=== PATIENT | male | born 1950 | race Two or more races ===

== ENCOUNTER 2022-12-31 21:13 | Inpatient (IN) | payer MEDICARE, BC ==
[~2022-12-31] VITALS: Ht 167.6 cm; Wt 98.0 kg
[2023-01-01] VITALS (15 sets, daily range): BP systolic 134–158; BP diastolic 47–77; PULSE 63–86; RESP 17–31; TEMP 97.3–98.1; O2SAT 75–95
[2023-01-01] MEDS ORDERED: MORPHINE SULFATE INJ 2 MG/ml SYRG IV PRN ×2 (11:45)
[2023-01-01] MEDS ORDERED: LORazepam 0.5 MG TAB PO PRN (11:45)
[2023-01-01] MEDS ORDERED: HYDROcodone-ACET 5/325MG TAB PO PRN (11:45)
[2023-01-01] MEDS ORDERED: NITROGLYCERIN 0.4 MG SL TAB SL PRN (11:45)
[2023-01-01] MEDS ORDERED: ONDANSETRON HCL 4 MG/2 ML VIAL IV PRN (11:45)
[2023-01-01] MEDS ORDERED: MAALOX PLUS or MAALOX 30 ML PO PRN (11:45)
[2023-01-01] MEDS ORDERED: DOCUSATE SOD 100 MG CAP PO PRN ×2 (11:45→18:45)
[2023-01-01] MEDS ORDERED: EZET10TA22 PO (11:58)
[2023-01-01] MEDS ORDERED: ASPI-463 PO (11:58)
[2023-01-01] MEDS ORDERED: ROSU40TA81 PO (11:58)
[2023-01-01] MEDS ORDERED: [UNRECOGNIZED DRUG - CODE] PO (11:58)
[2023-01-01] MEDS ORDERED: CARV20CA10 PO (11:58)
[2023-01-01] MEDS ORDERED: SITA50TA PO (11:58)
[2023-01-01] MEDS ORDERED: EMPA1TAB3 PO (11:58)
[2023-01-01] MEDS ORDERED: GABA-1250 PO (11:58)
[2023-01-01] MEDS ORDERED: FURO1TAB31 PO (11:58)
[2023-01-01] MEDS ORDERED: OMEG-20 PO (11:58)
[2023-01-01] MEDS ORDERED: POTA-220 PO (11:58)
[2023-01-01] MEDS ORDERED: ASCO1TAB27 PO (11:58)
[2023-01-01] MEDS ORDERED: LOSA100T58 PO (11:58)
[2023-01-01] MEDS ORDERED: PANT40TA2 PO (11:58)
[2023-01-01] MEDS ORDERED: FURO1TAB32 PO (11:58)
[2023-01-01] MEDS ORDERED: FERR325T24 PO (11:58)
[2023-01-01 12:00] LABS: Basophils # (auto) 0.1 10 ^3/uL (0-0.2); Basophils % (auto) 0.9 % (0.0-2.0); Eosinophils # (auto) 0 10 ^3/uL (0-0.8); Eosinophils % (auto) 0.7 % (0.0-7.0); Hematocrit 36.3 % (41.0-53.0); Hemoglobin 11.5 g/dL (13.5-17.5); Lymphocytes # (auto) 0.9 10 ^3/uL (0.4-5.4); Mean Corpuscular Hemoglobin 27.4 pg (28.0-32.0); Mean Corpuscular Hgb Conc. 31.8 g/dL (32.0-36.0); Mean Corpuscular Volume 86.3 fL (80.0-100.0); Monocytes # (auto) 0.9 10 ^3/uL (0-1.3); Monocytes % (auto) 15.5 % (0.0-12.0); Neutrophils # (auto) 4.1 10 ^3/uL (1.6-8.6); Neutrophils % (auto) 67.9 % (37.0-80.0); Nucleated Red Blood Cells % 0.2 %; Red Blood Cells 4.21 10^6/uL (4.5-5.90); Red Cell Distribution Width 17.5 % (11.8-14.3)
[2023-01-01] MEDS ORDERED: PROPOFOL 10 MG/ML 20 ML IV ONE (12:06)
[2023-01-01] MEDS ORDERED: GLYCOPYRROLATE 0.2 MG/ML 1ML VIAL ONE (12:07)
[2023-01-01] MEDS ORDERED: ROCURONIUM 10MG/ML 10ML VIAL IV ONE (12:07)
[2023-01-01] MEDS ORDERED: LIDOCAINE 2% (LOCAL ANESTH.) PF 5ml SDV ONE (12:07)
[2023-01-01] MEDS ORDERED: ONDANSETRON HCL 4 MG/2 ML VIAL ONE (12:07)
[2023-01-01] MEDS ORDERED: DexAMETHasone SOD PHOS 10MG/1ML VIAL INJ ONE (12:07)
[2023-01-01] MEDS ORDERED: KETAMINE HCL 10 ML ONE (12:13)
[2023-01-01 12:21] LABS: INR 1.38 (0.9-1.15); Partial Thromboplastin Time 27.3 SEC (24.5-34.5); Prothrombin Time 14.2 sec (9.3-11.8)
[2023-01-01 12:26] LABS: Albumin 3.3 g/dL (3.4-5.0); Calcium 8.7 mg/dL (8.5-10.1)
[2023-01-01 12:38] LABS: BUN/Creatinine Ratio 42.8 (10.0-20.0); Bilirubin, Total 0.5 mg/dL (0.2-1.0); Total Protein 8.2 g/dL (6.4-8.2)
[2023-01-01] MEDS ORDERED: CIPROFLOXACIN 400MG/200ML 200 ML IV ONE (12:59)
[2023-01-01] MEDS ORDERED: SODIUM CHLORIDE LOCK 10 ML ONE (13:16)
[2023-01-01] MEDS ORDERED: ePHEDrine SULFATE 50 MG/ML AMP ONE (13:23)
[2023-01-01] MEDS ORDERED: FUROSEMIDE 20 MG/2 ML VIAL ONE (13:26)
[2023-01-01] MEDS ORDERED: fentaNYL CITRATE 100 MCG/2 ML VL ONE (13:43)
[2023-01-01] MEDS: SODIUM CHLOR 0.9% PF (SALINE LOCK) 10ML VIAL/SYR IV SCH ×2 (14:00→23:32)
[2023-01-01] MEDS ORDERED: SUGAMMADEX 200mg/2ml Vial (100MG/ML) IV ONE (14:37)
[2023-01-01 16:14] LABS: Base Excess -4.3 mmol/L (-2.0-2.0)
[2023-01-01] MEDS ORDERED: DEXTROSE (50%) 50ML SYRG IV PRN (18:30)
[2023-01-01] MEDS: ACCU-CHEK COMFORT CURVE STRIP VI SCH (22:00)
[2023-01-01] MEDS: GABAPENTIN 300 MG CAP PO SCH (22:00)
[2023-01-01] MEDS: InsuLIN REG 1unit/0.01ml Soln (100units/ml) SC SCH (22:00)
[2023-01-01] MEDS: ACETAMINOPHEN 325 MG TAB PO PRN (23:32)
[2023-01-02] VITALS (31 sets, daily range): BP systolic 75–138; BP diastolic 30–62; PULSE 54–95; RESP 14–32; TEMP 97.5–98; O2SAT 86–100
[2023-01-02] MEDS ORDERED: diphenhdrAMINE HCL 25 MG CAP PO ONE (03:30)
[2023-01-02] MEDS: ACETAMINOPHEN 325 MG TAB PO PRN ×2 (05:04→20:55)
[2023-01-02 05:22] LABS: Basophils # (auto) 0 10 ^3/uL (0-0.2); Basophils % (auto) 0.3 % (0.0-2.0); Eosinophils # (auto) 0 10 ^3/uL (0-0.8); Hematocrit 34.4 % (41.0-53.0); Lymphocytes # (auto) 0.7 10 ^3/uL (0.4-5.4); Lymphocytes % (auto) 12.3 % (10.0-50.0); Mean Corpuscular Hemoglobin 27.7 pg (28.0-32.0); Mean Corpuscular Hgb Conc. 32.1 g/dL (32.0-36.0); Mean Corpuscular Volume 86.1 fL (80.0-100.0); Monocytes # (auto) 0.5 10 ^3/uL (0-1.3); Monocytes % (auto) 9.1 % (0.0-12.0); Neutrophils # (auto) 4.6 10 ^3/uL (1.6-8.6); Neutrophils % (auto) 78.3 % (37.0-80.0); Red Blood Cells 3.99 10^6/uL (4.5-5.90); Red Cell Distribution Width 17.5 % (11.8-14.3); White Blood Cell 5.9 10^3/uL (4.4-10.8)
[2023-01-02 05:38] LABS: Albumin 3.1 g/dL (3.4-5.0); BUN/Creatinine Ratio 45.7 (10.0-20.0); Calcium 8.4 mg/dL (8.5-10.1)
[2023-01-02 05:40] LABS: Bilirubin, Total 0.4 mg/dL (0.2-1.0); Total Protein 7.5 g/dL (6.4-8.2)
[2023-01-02 05:42] LABS: Potassium 5.6 mmol/L (3.5-5.1)
[2023-01-02] MEDS: GABAPENTIN 300 MG CAP PO SCH (05:47)
[2023-01-02] MEDS: SODIUM CHLOR 0.9% PF (SALINE LOCK) 10ML VIAL/SYR IV SCH ×3 (05:48→20:55)
[2023-01-02] MEDS ORDERED: SODIUM ZIRCONIUM CYCL 10 GM PAK PO ONE (06:00)
[2023-01-02] MEDS: InsuLIN REG 1unit/0.01ml Soln (100units/ml) SC SCH ×4 (06:05→20:57)
[2023-01-02] MEDS: ACCU-CHEK COMFORT CURVE STRIP VI SCH ×4 (06:05→20:56)
[2023-01-02] MEDS: PANTOPRAZOLE 40 MG TAB PO SCH (08:51)
[2023-01-02] MEDS: cefTRIAXone 1GM/50ML D5W 50 ML IV SCH (08:54)
[2023-01-02] MEDS ORDERED: FUROSEMIDE 20 MG TAB PO SCH (10:00)
[2023-01-02] MEDS ORDERED: ATORVASTATIN 20 MG TAB PO SCH (10:00)
[2023-01-02] MEDS ORDERED: ASPirin 81 mg TAB PO SCH (10:00)
[2023-01-02] MEDS ORDERED: LOSARTAN POTASSIUM 50 MG TAB PO SCH (10:00)
[2023-01-02] MEDS ORDERED: CARVEDILOL 12.5 MG TAB PO ONE (10:00)
[2023-01-02] MEDS ORDERED: POTASSIUM CHL 20 Meq TABLET PO SCH (10:00)
[2023-01-02] MEDS: SOD CHL 0.45% 1,000 ML IV SCH (14:01)
[2023-01-02] MEDS: FUROSEMIDE 20 MG/2 ML VIAL IV SCH (16:40)
[2023-01-02] MEDS: IPRATROPIUM BROM 0.5 MG/2.5ML INH SOL NEB SCH (19:11)
[2023-01-02] MEDS: ALBUTEROL SULF 2.5 MG/0.5ML(0.5%) NEB SOLN NEB SCH (19:11)
[2023-01-02] MEDS: MELATONIN 5 MG TAB PO SCH (20:53)
[2023-01-02] MEDS: ATORVASTATIN 20 MG TAB PO SCH (20:54)
[2023-01-03] VITALS (34 sets, daily range): BP systolic 95–153; BP diastolic 46–99; PULSE 53–122; RESP 13–32; TEMP 97.6–98; O2SAT 88–97
[2023-01-03] MEDS: ALBUTEROL SULF 2.5 MG/0.5ML(0.5%) NEB SOLN NEB SCH ×4 (00:27→18:35)
[2023-01-03] MEDS: IPRATROPIUM BROM 0.5 MG/2.5ML INH SOL NEB SCH ×4 (00:27→18:35)
[2023-01-03] MEDS: ACETAMINOPHEN 325 MG TAB PO PRN ×4 (02:58→21:58)
[2023-01-03 06:15] LABS: Basophils # (auto) 0 10 ^3/uL (0-0.2); Basophils % (auto) 0.3 % (0.0-2.0); Eosinophils # (auto) 0 10 ^3/uL (0-0.8); Eosinophils % (auto) 0.5 % (0.0-7.0); Hematocrit 31.7 % (41.0-53.0); Hemoglobin 10.2 g/dL (13.5-17.5); Lymphocytes # (auto) 0.7 10 ^3/uL (0.4-5.4); Mean Corpuscular Hemoglobin 27.9 pg (28.0-32.0); Mean Corpuscular Hgb Conc. 32.3 g/dL (32.0-36.0); Mean Corpuscular Volume 86.2 fL (80.0-100.0); Monocytes # (auto) 0.7 10 ^3/uL (0-1.3); Monocytes % (auto) 14.4 % (0.0-12.0); Neutrophils # (auto) 3.2 10 ^3/uL (1.6-8.6); Neutrophils % (auto) 69.8 % (37.0-80.0); Nucleated Red Blood Cells % 0.2 %; Red Blood Cells 3.67 10^6/uL (4.5-5.90); Red Cell Distribution Width 17.6 % (11.8-14.3); White Blood Cell 4.6 10^3/uL (4.4-10.8)
[2023-01-03 06:34] LABS: Potassium 4.3 mmol/L (3.5-5.1)
[2023-01-03 06:42] LABS: BUN/Creatinine Ratio 42.6 (10.0-20.0); Magnesium 2.7 mg/dL (1.6-2.6)
[2023-01-03] MEDS: ACCU-CHEK COMFORT CURVE STRIP VI SCH ×4 (07:00→21:59)
[2023-01-03] MEDS: InsuLIN REG 1unit/0.01ml Soln (100units/ml) SC SCH ×4 (07:00→21:59)
[2023-01-03] MEDS: SODIUM CHLOR 0.9% PF (SALINE LOCK) 10ML VIAL/SYR IV SCH ×3 (07:48→21:58)
[2023-01-03] MEDS: FUROSEMIDE 20 MG/2 ML VIAL IV SCH ×2 (07:48→18:37)
[2023-01-03] MEDS: LEVOTHYROXINE SODIUM 88 MCG TAB PO SCH (07:48)
[2023-01-03] MEDS: cefTRIAXone 1GM/50ML D5W 50 ML IV SCH (09:25)
[2023-01-03] MEDS: SOD CHL 0.45% 1,000 ML IV SCH (09:44)
[2023-01-03] MEDS: PANTOPRAZOLE 40 MG TAB PO SCH (10:10)
[2023-01-03] MEDS ORDERED: FUROSEMIDE 20 MG/2 ML VIAL IV ONE (11:45)
[2023-01-03] MEDS: traMADol HCL 50 MG TAB PO PRN ×2 (12:13→20:28)
[2023-01-03 17:52] LABS: Urine Bacteria NONE SEEN /hpf (None Seen); Urine Blood 3+ /uL (Negative); Urine Clarity Clear (Clear); Urine Color Colorless (Yellow); Urine Mucus FEW (None Seen); Urine Protein, UAD TRACE (Negative); Urine Specific Gravity 1.007 (1.001-1.035); Urine Urobilinogen Normal (Negative); Urine WBC 9 /hpf (0 - 3)
[2023-01-03] MEDS: MELATONIN 5 MG TAB PO SCH (21:58)
[2023-01-03] MEDS: ATORVASTATIN 20 MG TAB PO SCH (21:58)
[2023-01-03] MEDS: GABAPENTIN 300 MG CAP PO SCH (21:59)
[2023-01-04] VITALS (27 sets, daily range): BP systolic 107–161; BP diastolic 39–85; PULSE 62–83; RESP 16–33; TEMP 97–98.6; O2SAT 87–98
[2023-01-04] MEDS: IPRATROPIUM BROM 0.5 MG/2.5ML INH SOL NEB SCH ×4 (00:27→18:41)
[2023-01-04] MEDS: ALBUTEROL SULF 2.5 MG/0.5ML(0.5%) NEB SOLN NEB SCH ×4 (00:27→18:41)
[2023-01-04 05:17] LABS: Calcium 8.3 mg/dL (8.5-10.1); Potassium 4.3 mmol/L (3.5-5.1)
[2023-01-04 05:19] LABS: BUN/Creatinine Ratio 48.1 (10.0-20.0)
[2023-01-04] MEDS: ACETAMINOPHEN 325 MG TAB PO PRN ×2 (05:32→20:38)
[2023-01-04] MEDS: traMADol HCL 50 MG TAB PO PRN ×2 (05:32→20:35)
[2023-01-04] MEDS: ACCU-CHEK COMFORT CURVE STRIP VI SCH ×4 (07:00→21:35)
[2023-01-04] MEDS: InsuLIN REG 1unit/0.01ml Soln (100units/ml) SC SCH ×4 (07:00→21:43)
[2023-01-04] MEDS: LEVOTHYROXINE SODIUM 88 MCG TAB PO SCH (08:08)
[2023-01-04] MEDS: SODIUM CHLOR 0.9% PF (SALINE LOCK) 10ML VIAL/SYR IV SCH ×3 (08:09→21:34)
[2023-01-04] MEDS: cefTRIAXone 1GM/50ML D5W 50 ML IV SCH (09:07)
[2023-01-04] MEDS: PANTOPRAZOLE 40 MG TAB PO SCH (09:08)
[2023-01-04 10:27] LABS: Hepatitis B Surface Antibody Negative (Negative)
[2023-01-04 10:47] LABS: Hepatitis A Total Antibody Negative (Negative)
[2023-01-04] MEDS ORDERED: CYANOCOBALAMIN (B-12) 1000 MCG/1 ML VIAL IM ONE (11:15)
[2023-01-04 12:19] LABS: Hepatitis B Core Total AB Negative (Negative)
[2023-01-04 12:20] LABS: Hepatitis B Surface Antigen Negative (Negative); Hepatitis C Antibody Negative (Negative)
[2023-01-04] MEDS: PIPERACILLIN-TAZOB 3.375GM 100 ML IV SCH ×2 (14:19→21:33)
[2023-01-04] MEDS: FUROSEMIDE 20 MG/2 ML VIAL IV SCH (17:41)
[2023-01-04] MEDS: MELATONIN 5 MG TAB PO SCH (21:34)
[2023-01-04] MEDS: GABAPENTIN 300 MG CAP PO SCH (21:34)
[2023-01-04] MEDS: ATORVASTATIN 20 MG TAB PO SCH (21:44)
[2023-01-05] VITALS (36 sets, daily range): BP systolic 118–167; BP diastolic 48–75; PULSE 66–181; RESP 15–29; TEMP 97.9–98.5; O2SAT 89–100
[2023-01-05] MEDS: ALBUTEROL SULF 2.5 MG/0.5ML(0.5%) NEB SOLN NEB SCH ×4 (00:11→19:20)
[2023-01-05] MEDS: IPRATROPIUM BROM 0.5 MG/2.5ML INH SOL NEB SCH ×4 (00:12→19:20)
[2023-01-05 05:05] LABS: Hemoglobin 10.9 g/dL (13.5-17.5); Mean Corpuscular Hemoglobin 27.6 pg (28.0-32.0); Mean Corpuscular Volume 86.2 fL (80.0-100.0); Red Blood Cells 3.94 10^6/uL (4.5-5.90); Red Cell Distribution Width 17.8 % (11.8-14.3); White Blood Cell 4.3 10^3/uL (4.4-10.8)
[2023-01-05 05:12] LABS: Band Neutrophils % (manual) 0; Basophils % (manual) 0 (0.0-2.0); Blast Cells 0; Eosinophils % (manual) 0 (0-7); Metamyelocytes % 0; Myelocytes % 0; Promyelocytes % 0; Reactive Lymphocytes 0
[2023-01-05 05:16] LABS: BUN/Creatinine Ratio 38.4 (10.0-20.0); Calcium 8.4 mg/dL (8.5-10.1); Potassium 4.2 mmol/L (3.5-5.1)
[2023-01-05] MEDS: LEVOTHYROXINE SODIUM 88 MCG TAB PO SCH (06:00)
[2023-01-05] MEDS: PIPERACILLIN-TAZOB 3.375GM 100 ML IV SCH ×3 (06:00→21:22)
[2023-01-05] MEDS: FUROSEMIDE 20 MG/2 ML VIAL IV SCH ×2 (06:04→17:47)
[2023-01-05] MEDS: traMADol HCL 50 MG TAB PO PRN (06:08)
[2023-01-05] MEDS: ACETAMINOPHEN 325 MG TAB PO PRN (06:12)
[2023-01-05] MEDS: ACCU-CHEK COMFORT CURVE STRIP VI SCH ×4 (06:12→21:25)
[2023-01-05] MEDS: InsuLIN REG 1unit/0.01ml Soln (100units/ml) SC SCH ×4 (06:12→21:25)
[2023-01-05] MEDS: SODIUM CHLOR 0.9% PF (SALINE LOCK) 10ML VIAL/SYR IV SCH ×3 (06:13→21:22)
[2023-01-05 08:17] LABS: PSA Free 0.83 ng/mL; Prostate Specific Antigen 4.2 ng/mL (0.0-4.0)
[2023-01-05] MEDS: PANTOPRAZOLE 40 MG TAB PO SCH (08:53)
[2023-01-05 09:16] LABS: Lymphocytes % (manual) 15 (10.0-50.0); Monocytes % (manual) 11 (0-12); Platelet Estimate Decreased
[2023-01-05] MEDS ORDERED: CYANOCOBALAMIN (B-12) 1000 MCG/1 ML VIAL IM SCH (10:00)
[2023-01-05] MEDS: ATORVASTATIN 20 MG TAB PO SCH (21:20)
[2023-01-05] MEDS: MELATONIN 5 MG TAB PO SCH (21:21)
[2023-01-05] MEDS: GABAPENTIN 300 MG CAP PO SCH (21:21)
[2023-01-06] VITALS (31 sets, daily range): BP systolic 123–166; BP diastolic 35–66; PULSE 74–93; RESP 17–32; TEMP 97.4–98; O2SAT 87–99
[2023-01-06] MEDS: ALBUTEROL SULF 2.5 MG/0.5ML(0.5%) NEB SOLN NEB SCH ×4 (00:01→18:51)
[2023-01-06] MEDS: IPRATROPIUM BROM 0.5 MG/2.5ML INH SOL NEB SCH ×4 (00:01→18:52)
[2023-01-06 05:13] LABS: Calcium 8.5 mg/dL (8.5-10.1); Magnesium 2.3 mg/dL (1.6-2.6)
[2023-01-06 05:16] LABS: BUN/Creatinine Ratio 33.3 (10.0-20.0)
[2023-01-06 05:32] LABS: Basophils # (auto) 0 10 ^3/uL (0-0.2); Basophils % (auto) 0.5 % (0.0-2.0); Eosinophils # (auto) 0 10 ^3/uL (0-0.8); Eosinophils % (auto) 0.3 % (0.0-7.0); Hematocrit 33.9 % (41.0-53.0); Hemoglobin 10.9 g/dL (13.5-17.5); Lymphocytes # (auto) 0.7 10 ^3/uL (0.4-5.4); Lymphocytes % (auto) 14.8 % (10.0-50.0); Mean Corpuscular Hemoglobin 27.7 pg (28.0-32.0); Mean Corpuscular Hgb Conc. 32.3 g/dL (32.0-36.0); Mean Corpuscular Volume 85.7 fL (80.0-100.0); Monocytes # (auto) 0.9 10 ^3/uL (0-1.3); Monocytes % (auto) 17.4 % (0.0-12.0); Neutrophils # (auto) 3.4 10 ^3/uL (1.6-8.6); Nucleated Red Blood Cells % 0.1 %; Red Blood Cells 3.95 10^6/uL (4.5-5.90); Red Cell Distribution Width 17.6 % (11.8-14.3)
[2023-01-06] MEDS: FUROSEMIDE 20 MG/2 ML VIAL IV SCH (06:18)
[2023-01-06] MEDS: SODIUM CHLOR 0.9% PF (SALINE LOCK) 10ML VIAL/SYR IV SCH ×3 (06:19→22:26)
[2023-01-06] MEDS: PIPERACILLIN-TAZOB 3.375GM 100 ML IV SCH ×3 (06:23→22:25)
[2023-01-06] MEDS: LEVOTHYROXINE SODIUM 88 MCG TAB PO SCH (06:23)
[2023-01-06] MEDS: InsuLIN REG 1unit/0.01ml Soln (100units/ml) SC SCH ×4 (06:24→22:00)
[2023-01-06] MEDS: ACCU-CHEK COMFORT CURVE STRIP VI SCH ×4 (06:24→22:26)
[2023-01-06 06:54] LABS: INR 1.42 (0.9-1.15); Partial Thromboplastin Time 26.7 SEC (24.5-34.5); Prothrombin Time 14.6 sec (9.3-11.8)
[2023-01-06] MEDS: PANTOPRAZOLE 40 MG TAB PO SCH (08:07)
[2023-01-06] MEDS: GABAPENTIN 300 MG CAP PO SCH (22:25)
[2023-01-06] MEDS: ATORVASTATIN 20 MG TAB PO SCH (22:25)
[2023-01-06] MEDS: MELATONIN 5 MG TAB PO SCH (22:26)
[2023-01-07] VITALS (21 sets, daily range): BP systolic 115–158; BP diastolic 47–70; PULSE 66–87; RESP 17–30; TEMP 97.4–97.9; O2SAT 90–98
[2023-01-07] MEDS: traMADol HCL 50 MG TAB PO PRN (02:23)
[2023-01-07 04:56] LABS: Basophils # (auto) 0 10 ^3/uL (0-0.2); Basophils % (auto) 0.7 % (0.0-2.0); Eosinophils # (auto) 0 10 ^3/uL (0-0.8); Eosinophils % (auto) 0.3 % (0.0-7.0); Hematocrit 33.3 % (41.0-53.0); Hemoglobin 10.7 g/dL (13.5-17.5); Lymphocytes # (auto) 0.8 10 ^3/uL (0.4-5.4); Lymphocytes % (auto) 14.1 % (10.0-50.0); Mean Corpuscular Hemoglobin 27.7 pg (28.0-32.0); Mean Corpuscular Hgb Conc. 32.3 g/dL (32.0-36.0); Mean Corpuscular Volume 85.9 fL (80.0-100.0); Monocytes % (auto) 17.5 % (0.0-12.0); Neutrophils # (auto) 3.7 10 ^3/uL (1.6-8.6); Neutrophils % (auto) 67.4 % (37.0-80.0); Red Blood Cells 3.87 10^6/uL (4.5-5.90); Red Cell Distribution Width 17.2 % (11.8-14.3); White Blood Cell 5.6 10^3/uL (4.4-10.8)
[2023-01-07] MEDS: PIPERACILLIN-TAZOB 3.375GM 100 ML IV SCH ×3 (05:09→21:20)
[2023-01-07] MEDS: FUROSEMIDE 20 MG/2 ML VIAL IV SCH ×3 (05:09→17:23)
[2023-01-07] MEDS: SODIUM CHLOR 0.9% PF (SALINE LOCK) 10ML VIAL/SYR IV SCH ×3 (05:10→21:20)
[2023-01-07 05:19] LABS: Calcium 8.4 mg/dL (8.5-10.1); Potassium 3.7 mmol/L (3.5-5.1)
[2023-01-07 05:22] LABS: BUN/Creatinine Ratio 27.4 (10.0-20.0)
[2023-01-07] MEDS: LEVOTHYROXINE SODIUM 88 MCG TAB PO SCH (05:58)
[2023-01-07] MEDS: InsuLIN REG 1unit/0.01ml Soln (100units/ml) SC SCH ×4 (05:58→21:24)
[2023-01-07] MEDS: ACCU-CHEK COMFORT CURVE STRIP VI SCH ×4 (05:58→21:20)
[2023-01-07] MEDS: IPRATROPIUM BROM 0.5 MG/2.5ML INH SOL NEB SCH ×4 (06:57→21:20)
[2023-01-07] MEDS: ALBUTEROL SULF 2.5 MG/0.5ML(0.5%) NEB SOLN NEB SCH ×4 (06:57→21:19)
[2023-01-07] MEDS: PANTOPRAZOLE 40 MG TAB PO SCH ×3 (08:24→18:55)
[2023-01-07] MEDS: MELATONIN 5 MG TAB PO SCH (21:20)
[2023-01-07] MEDS: ATORVASTATIN 20 MG TAB PO SCH (21:20)
[2023-01-07] MEDS: GABAPENTIN 300 MG CAP PO SCH (21:20)
[2023-01-08] VITALS (29 sets, daily range): BP systolic 130–149; BP diastolic 46–60; PULSE 74–121; RESP 11–40; TEMP 97.5–98.6; O2SAT 86–99
[2023-01-08 05:20] LABS: Hematocrit 33.5 % (41.0-53.0); Hemoglobin 10.9 g/dL (13.5-17.5); Mean Corpuscular Hemoglobin 27.9 pg (28.0-32.0); Mean Corpuscular Hgb Conc. 32.5 g/dL (32.0-36.0); Mean Corpuscular Volume 85.7 fL (80.0-100.0); Red Blood Cells 3.91 10^6/uL (4.5-5.90); Red Cell Distribution Width 17.9 % (11.8-14.3); White Blood Cell 5.2 10^3/uL (4.4-10.8)
[2023-01-08 05:28] LABS: Band Neutrophils % (manual) 0; Basophils % (manual) 0 (0.0-2.0); Blast Cells 0; Eosinophils % (manual) 0 (0-7); Metamyelocytes % 0; Myelocytes % 0; Promyelocytes % 0; Reactive Lymphocytes 0
[2023-01-08 05:35] LABS: Potassium 3.5 mmol/L (3.5-5.1)
[2023-01-08 05:39] LABS: Albumin 2.9 g/dL (3.4-5.0); BUN/Creatinine Ratio 22.8 (10.0-20.0); Calcium 8.5 mg/dL (8.5-10.1)
[2023-01-08 05:42] LABS: Bilirubin, Total 0.5 mg/dL (0.2-1.0); Total Protein 7.2 g/dL (6.4-8.2)
[2023-01-08] MEDS: IPRATROPIUM BROM 0.5 MG/2.5ML INH SOL NEB SCH ×4 (06:06→21:29)
[2023-01-08] MEDS: ALBUTEROL SULF 2.5 MG/0.5ML(0.5%) NEB SOLN NEB SCH ×4 (06:07→21:29)
[2023-01-08] MEDS: SODIUM CHLOR 0.9% PF (SALINE LOCK) 10ML VIAL/SYR IV SCH ×3 (06:27→21:41)
[2023-01-08] MEDS: ACCU-CHEK COMFORT CURVE STRIP VI SCH ×4 (06:27→21:43)
[2023-01-08] MEDS: LEVOTHYROXINE SODIUM 88 MCG TAB PO SCH (06:27)
[2023-01-08] MEDS: InsuLIN REG 1unit/0.01ml Soln (100units/ml) SC SCH ×4 (06:28→21:45)
[2023-01-08] MEDS: FUROSEMIDE 20 MG/2 ML VIAL IV SCH ×2 (06:31→17:28)
[2023-01-08] MEDS: PIPERACILLIN-TAZOB 3.375GM 100 ML IV SCH ×3 (06:32→21:42)
[2023-01-08] MEDS: PANTOPRAZOLE 40 MG TAB PO SCH (08:01)
[2023-01-08 08:12] LABS: Lymphocytes % (manual) 25 (10.0-50.0); Monocytes % (manual) 10 (0-12)
[2023-01-08 08:15] LABS: Platelet Estimate Decreased
[2023-01-08] MEDS ORDERED: POTASSIUM CHL 20 Meq TABLET PO ONE (08:15)
[2023-01-08] MEDS ORDERED: IOHEXOL 300 MG/ML 100ML BOTTLE IJ ONE (09:04)
[2023-01-08] MEDS: ATORVASTATIN 20 MG TAB PO SCH (21:42)
[2023-01-08] MEDS: MELATONIN 5 MG TAB PO SCH (21:42)
[2023-01-08] MEDS: GABAPENTIN 300 MG CAP PO SCH (21:43)
[2023-01-08] MEDS: ACETAMINOPHEN 325 MG TAB PO PRN (23:34)
[2023-01-09] VITALS (20 sets, daily range): BP systolic 113–140; BP diastolic 49–90; PULSE 66–95; RESP 16–37; TEMP 97.3–98; O2SAT 90–97
[2023-01-09] MEDS: traMADol HCL 50 MG TAB PO PRN (01:24)
[2023-01-09] MEDS: ALBUTEROL SULF 2.5 MG/0.5ML(0.5%) NEB SOLN NEB SCH ×5 (06:00→17:21)
[2023-01-09] MEDS: IPRATROPIUM BROM 0.5 MG/2.5ML INH SOL NEB SCH ×5 (06:00→17:21)
[2023-01-09] MEDS: LEVOTHYROXINE SODIUM 88 MCG TAB PO SCH (06:11)
[2023-01-09] MEDS: SODIUM CHLOR 0.9% PF (SALINE LOCK) 10ML VIAL/SYR IV SCH ×3 (06:12→22:00)
[2023-01-09] MEDS: PIPERACILLIN-TAZOB 3.375GM 100 ML IV SCH ×3 (06:12→22:00)
[2023-01-09] MEDS: FUROSEMIDE 20 MG/2 ML VIAL IV SCH ×2 (06:16→18:26)
[2023-01-09] MEDS: ACCU-CHEK COMFORT CURVE STRIP VI SCH ×4 (06:17→22:00)
[2023-01-09] MEDS: InsuLIN REG 1unit/0.01ml Soln (100units/ml) SC SCH ×4 (06:17→22:00)
[2023-01-09] MEDS: PANTOPRAZOLE 40 MG TAB PO SCH (08:06)
[2023-01-09] MEDS: ACETAMINOPHEN 325 MG TAB PO PRN ×2 (13:38→23:09)
[2023-01-09] MEDS: GABAPENTIN 300 MG CAP PO SCH (22:00)
[2023-01-09] MEDS: ATORVASTATIN 20 MG TAB PO SCH (22:00)
[2023-01-09] MEDS: MELATONIN 5 MG TAB PO SCH (22:00)
[2023-01-10] VITALS (10 sets, daily range): BP systolic 115–153; BP diastolic 46–56; PULSE 66–81; RESP 16–20; TEMP 97.4–98.2; O2SAT 91–99
[2023-01-10] MEDS: IPRATROPIUM BROM 0.5 MG/2.5ML INH SOL NEB SCH ×5 (00:09→23:11)
[2023-01-10] MEDS: ALBUTEROL SULF 2.5 MG/0.5ML(0.5%) NEB SOLN NEB SCH ×5 (00:09→23:11)
[2023-01-10] MEDS: traMADol HCL 50 MG TAB PO PRN ×2 (04:53→13:21)
[2023-01-10] MEDS: PIPERACILLIN-TAZOB 3.375GM 100 ML IV SCH ×3 (06:07→22:09)
[2023-01-10] MEDS: SODIUM CHLOR 0.9% PF (SALINE LOCK) 10ML VIAL/SYR IV SCH ×3 (06:07→22:18)
[2023-01-10] MEDS: FUROSEMIDE 20 MG/2 ML VIAL IV SCH ×2 (06:07→17:15)
[2023-01-10] MEDS: ACCU-CHEK COMFORT CURVE STRIP VI SCH ×4 (10:00→22:18)
[2023-01-10] MEDS: InsuLIN REG 1unit/0.01ml Soln (100units/ml) SC SCH ×4 (10:00→22:00)
[2023-01-10] MEDS: LEVOTHYROXINE SODIUM 88 MCG TAB PO SCH (10:10)
[2023-01-10] MEDS: PANTOPRAZOLE 40 MG TAB PO SCH (10:10)
[2023-01-10] MEDS: GABAPENTIN 300 MG CAP PO SCH (22:00)
[2023-01-10] MEDS: MELATONIN 5 MG TAB PO SCH (22:00)
[2023-01-10] MEDS: ATORVASTATIN 20 MG TAB PO SCH (22:18)
[2023-01-11] VITALS (11 sets, daily range): BP systolic 126–150; BP diastolic 48–63; PULSE 64–80; RESP 14–21; TEMP 97.4–98.2; O2SAT 91–100
[2023-01-11] MEDS: FUROSEMIDE 20 MG/2 ML VIAL IV SCH (05:38)
[2023-01-11] MEDS: PIPERACILLIN-TAZOB 3.375GM 100 ML IV SCH (05:39)
[2023-01-11] MEDS: SODIUM CHLOR 0.9% PF (SALINE LOCK) 10ML VIAL/SYR IV SCH ×3 (05:39→22:20)
[2023-01-11] MEDS: traMADol HCL 50 MG TAB PO PRN ×2 (05:59→17:13)
[2023-01-11] MEDS: InsuLIN REG 1unit/0.01ml Soln (100units/ml) SC SCH ×4 (06:24→22:00)
[2023-01-11] MEDS: ACCU-CHEK COMFORT CURVE STRIP VI SCH ×4 (06:31→22:20)
[2023-01-11] MEDS: LEVOTHYROXINE SODIUM 88 MCG TAB PO SCH (06:40)
[2023-01-11] MEDS: IPRATROPIUM BROM 0.5 MG/2.5ML INH SOL NEB SCH ×4 (07:30→21:02)
[2023-01-11] MEDS: ALBUTEROL SULF 2.5 MG/0.5ML(0.5%) NEB SOLN NEB SCH ×4 (07:30→21:03)
[2023-01-11 08:23] LABS: Basophils # (auto) 0 10 ^3/uL (0-0.2); Basophils % (auto) 0.6 % (0.0-2.0); Eosinophils # (auto) 0 10 ^3/uL (0-0.8); Eosinophils % (auto) 0.7 % (0.0-7.0); Hematocrit 34.2 % (41.0-53.0); Hemoglobin 11.1 g/dL (13.5-17.5); Lymphocytes # (auto) 0.8 10 ^3/uL (0.4-5.4); Lymphocytes % (auto) 15.4 % (10.0-50.0); Mean Corpuscular Hemoglobin 27.8 pg (28.0-32.0); Mean Corpuscular Hgb Conc. 32.3 g/dL (32.0-36.0); Mean Corpuscular Volume 85.9 fL (80.0-100.0); Monocytes # (auto) 0.8 10 ^3/uL (0-1.3); Monocytes % (auto) 15.9 % (0.0-12.0); Neutrophils # (auto) 3.6 10 ^3/uL (1.6-8.6); Neutrophils % (auto) 67.4 % (37.0-80.0); Red Blood Cells 3.99 10^6/uL (4.5-5.90); Red Cell Distribution Width 17.9 % (11.8-14.3); White Blood Cell 5.3 10^3/uL (4.4-10.8)
[2023-01-11 08:44] LABS: BUN/Creatinine Ratio 17.4 (10.0-20.0); Calcium 8.3 mg/dL (8.5-10.1); Potassium 3.6 mmol/L (3.5-5.1)
[2023-01-11] MEDS: PANTOPRAZOLE 40 MG TAB PO SCH (09:56)
[2023-01-11] MEDS: ACETAMINOPHEN 325 MG TAB PO PRN (10:56)
[2023-01-11] MEDS: GABAPENTIN 300 MG CAP PO SCH (22:00)
[2023-01-11] MEDS: MELATONIN 5 MG TAB PO SCH (22:00)
[2023-01-11] MEDS: ATORVASTATIN 20 MG TAB PO SCH (22:15)
[2023-01-12] VITALS (16 sets, daily range): BP systolic 109–137; BP diastolic 38–61; PULSE 70–94; RESP 16–20; TEMP 97.4–98.1; O2SAT 91–99
[2023-01-12 06:19] LABS: Basophils # (auto) 0 10 ^3/uL (0-0.2); Basophils % (auto) 0.6 % (0.0-2.0); Eosinophils # (auto) 0 10 ^3/uL (0-0.8); Eosinophils % (auto) 0.7 % (0.0-7.0); Lymphocytes # (auto) 0.8 10 ^3/uL (0.4-5.4); Lymphocytes % (auto) 13.7 % (10.0-50.0); Mean Corpuscular Hemoglobin 27.7 pg (28.0-32.0); Mean Corpuscular Hgb Conc. 32.3 g/dL (32.0-36.0); Mean Corpuscular Volume 85.9 fL (80.0-100.0); Monocytes # (auto) 0.9 10 ^3/uL (0-1.3); Monocytes % (auto) 16.2 % (0.0-12.0); Neutrophils % (auto) 68.8 % (37.0-80.0); Nucleated Red Blood Cells % 0.1 %; Red Blood Cells 3.95 10^6/uL (4.5-5.90); White Blood Cell 5.9 10^3/uL (4.4-10.8)
[2023-01-12 06:36] LABS: BUN/Creatinine Ratio 18.9 (10.0-20.0); Calcium 8.2 mg/dL (8.5-10.1); Potassium 3.4 mmol/L (3.5-5.1)
[2023-01-12] MEDS: ALBUTEROL SULF 2.5 MG/0.5ML(0.5%) NEB SOLN NEB SCH ×3 (06:36→19:04)
[2023-01-12] MEDS: IPRATROPIUM BROM 0.5 MG/2.5ML INH SOL NEB SCH ×3 (06:36→19:05)
[2023-01-12] MEDS: LEVOTHYROXINE SODIUM 88 MCG TAB PO SCH (06:52)
[2023-01-12] MEDS: InsuLIN REG 1unit/0.01ml Soln (100units/ml) SC SCH ×4 (06:53→21:26)
[2023-01-12] MEDS: ACCU-CHEK COMFORT CURVE STRIP VI SCH ×4 (06:53→21:26)
[2023-01-12] MEDS: SODIUM CHLOR 0.9% PF (SALINE LOCK) 10ML VIAL/SYR IV SCH ×3 (06:53→22:25)
[2023-01-12] MEDS: PANTOPRAZOLE 40 MG TAB PO SCH (10:11)
[2023-01-12] MEDS ORDERED: TAMSULOSIN HYDROCHLORIDE 0.4 MG CAP PO ONE (14:00)
[2023-01-12] MEDS ORDERED: POTASSIUM CHL 20 Meq TABLET PO ONE (15:00)
[2023-01-12] MEDS: ATORVASTATIN 20 MG TAB PO SCH (21:24)
[2023-01-12] MEDS: ACETAMINOPHEN 325 MG TAB PO PRN (21:26)
[2023-01-12] MEDS: MELATONIN 5 MG TAB PO SCH (21:41)
[2023-01-12] MEDS: GABAPENTIN 300 MG CAP PO SCH (21:41)
[2023-01-13] VITALS (14 sets, daily range): BP systolic 101–153; BP diastolic 49–84; PULSE 72–99; RESP 18–22; TEMP 97.4–98.1; O2SAT 91–100
[2023-01-13] MEDS: ALBUTEROL SULF 2.5 MG/0.5ML(0.5%) NEB SOLN NEB SCH ×4 (00:42→17:57)
[2023-01-13] MEDS: IPRATROPIUM BROM 0.5 MG/2.5ML INH SOL NEB SCH ×4 (00:42→17:57)
[2023-01-13] MEDS: ACETAMINOPHEN 325 MG TAB PO PRN (03:56)
[2023-01-13] MEDS: LEVOTHYROXINE SODIUM 88 MCG TAB PO SCH (06:34)
[2023-01-13] MEDS: ACCU-CHEK COMFORT CURVE STRIP VI SCH ×4 (06:36→21:27)
[2023-01-13] MEDS: SODIUM CHLOR 0.9% PF (SALINE LOCK) 10ML VIAL/SYR IV SCH ×3 (06:37→21:21)
[2023-01-13] MEDS: InsuLIN REG 1unit/0.01ml Soln (100units/ml) SC SCH ×4 (06:37→21:27)
[2023-01-13 06:39] LABS: Basophils # (auto) 0 10 ^3/uL (0-0.2); Basophils % (auto) 0.6 % (0.0-2.0); Eosinophils # (auto) 0 10 ^3/uL (0-0.8); Eosinophils % (auto) 0.3 % (0.0-7.0); Hematocrit 33.2 % (41.0-53.0); Hemoglobin 10.7 g/dL (13.5-17.5); Lymphocytes # (auto) 0.8 10 ^3/uL (0.4-5.4); Lymphocytes % (auto) 13.4 % (10.0-50.0); Mean Corpuscular Hemoglobin 27.6 pg (28.0-32.0); Mean Corpuscular Hgb Conc. 32.2 g/dL (32.0-36.0); Mean Corpuscular Volume 85.6 fL (80.0-100.0); Monocytes # (auto) 0.9 10 ^3/uL (0-1.3); Monocytes % (auto) 14.7 % (0.0-12.0); Neutrophils # (auto) 4.2 10 ^3/uL (1.6-8.6); Red Blood Cells 3.88 10^6/uL (4.5-5.90); Red Cell Distribution Width 18.2 % (11.8-14.3); White Blood Cell 5.9 10^3/uL (4.4-10.8)
[2023-01-13 06:58] LABS: BUN/Creatinine Ratio 14.5 (10.0-20.0); Potassium 3.9 mmol/L (3.5-5.1)
[2023-01-13] MEDS: PANTOPRAZOLE 40 MG TAB PO SCH (09:28)
[2023-01-13] MEDS ORDERED: TAMSULOSIN HYDROCHLORIDE 0.4 MG CAP PO SCH (18:45)
[2023-01-13] MEDS: traMADol HCL 50 MG TAB PO PRN (18:48)
[2023-01-13] MEDS: ATORVASTATIN 20 MG TAB PO SCH (21:21)
[2023-01-13] MEDS: GABAPENTIN 300 MG CAP PO SCH (21:21)
[2023-01-13] MEDS: MELATONIN 5 MG TAB PO SCH (21:21)
[2023-01-14] VITALS (11 sets, daily range): BP systolic 107–125; BP diastolic 47–86; PULSE 70–97; RESP 18–22; TEMP 97.4–98.8; O2SAT 91–99
[2023-01-14 06:04] LABS: BUN/Creatinine Ratio 19.4 (10.0-20.0); Calcium 8.1 mg/dL (8.5-10.1); Potassium 3.7 mmol/L (3.5-5.1)
[2023-01-14] MEDS: IPRATROPIUM BROM 0.5 MG/2.5ML INH SOL NEB SCH ×3 (06:04→12:47)
[2023-01-14] MEDS: ALBUTEROL SULF 2.5 MG/0.5ML(0.5%) NEB SOLN NEB SCH ×3 (06:04→12:47)
[2023-01-14] MEDS: SODIUM CHLOR 0.9% PF (SALINE LOCK) 10ML VIAL/SYR IV SCH ×2 (06:11→14:07)
[2023-01-14] MEDS: ACCU-CHEK COMFORT CURVE STRIP VI SCH ×3 (06:16→17:00)
[2023-01-14] MEDS: LEVOTHYROXINE SODIUM 88 MCG TAB PO SCH (06:18)
[2023-01-14] MEDS: InsuLIN REG 1unit/0.01ml Soln (100units/ml) SC SCH ×3 (06:18→17:00)
[2023-01-14 06:27] LABS: Basophils # (auto) 0 10 ^3/uL (0-0.2); Basophils % (auto) 0.4 % (0.0-2.0); Eosinophils # (auto) 0 10 ^3/uL (0-0.8); Eosinophils % (auto) 0.6 % (0.0-7.0); Hematocrit 32.7 % (41.0-53.0); Hemoglobin 10.8 g/dL (13.5-17.5); Lymphocytes # (auto) 0.7 10 ^3/uL (0.4-5.4); Lymphocytes % (auto) 10.9 % (10.0-50.0); Mean Corpuscular Hgb Conc. 32.8 g/dL (32.0-36.0); Mean Corpuscular Volume 85.1 fL (80.0-100.0); Monocytes # (auto) 0.9 10 ^3/uL (0-1.3); Monocytes % (auto) 14.6 % (0.0-12.0); Neutrophils # (auto) 4.4 10 ^3/uL (1.6-8.6); Neutrophils % (auto) 73.5 % (37.0-80.0); Nucleated Red Blood Cells % 0.1 %; Red Blood Cells 3.85 10^6/uL (4.5-5.90); Red Cell Distribution Width 18.1 % (11.8-14.3)
[2023-01-14] MEDS: PANTOPRAZOLE 40 MG TAB PO SCH (11:22)
[2023-01-14] MEDS: traMADol HCL 50 MG TAB PO PRN (14:07)
== END 2023-01-14 17:00 | disposition home or self-care (01) | DRG 665 ==
LOC: UNDOADMIN 01-01 09:53 → TELE-CENTR 01-01 09:53 → DOU IN ICU 01-01 17:46 → TELE-CENTR 01-01 17:46 → TELE-WESTW 01-09 11:45
PROVIDERS: ADMIT Internal Medicine; ATTEND Internal Medicine
PROC: 0TBC8ZZ Excision of Bladder Neck, Via Natural or Artificial Opening Endoscopic (ICD-10-PCS; 2023-01-01)
PROC: 0T9B70Z Drainage of Bladder with Drainage Device, Via Natural or Artificial Opening (ICD-10-PCS; 2023-01-01)
PROC: 5A09357 Assistance with Respiratory Ventilation, Less than 24 Consecutive Hours, Continuous Positive Airway Pressure (ICD-10-PCS; 2023-01-01)
PROC: 0VT08ZZ Resection of Prostate, Via Natural or Artificial Opening Endoscopic (ICD-10-PCS; principal; 2023-01-01 13:02)
PROC: 5A09357 Assistance with Respiratory Ventilation, Less than 24 Consecutive Hours, Continuous Positive Airway Pressure (ICD-10-PCS; 2023-01-02)
PROC: 5A09357 Assistance with Respiratory Ventilation, Less than 24 Consecutive Hours, Continuous Positive Airway Pressure (ICD-10-PCS; 2023-01-03)
PROC: 07BH3ZX Excision of Right Inguinal Lymphatic, Percutaneous Approach, Diagnostic (ICD-10-PCS; 2023-01-06)
DX: C67.0 Malignant neoplasm of trigone of bladder (principal); J96.20 Acute and chronic respiratory failure, unspecified whether with hypoxia or hypercapnia; C85.15 Unspecified B-cell lymphoma, lymph nodes of inguinal region and lower limb; N13.8 Other obstructive and reflux uropathy; N17.9 Acute kidney failure, unspecified; I13.0 Hypertensive heart and chronic kidney disease with heart failure and stage 1 through stage 4 chronic kidney disease, or unspecified chronic kidney disease; J98.11 Atelectasis; R18.8 Other ascites; K76.6 Portal hypertension; N30.01 Acute cystitis with hematuria; N40.1 Benign prostatic hyperplasia with lower urinary tract symptoms; D49.4 Neoplasm of unspecified behavior of bladder; E87.5 Hyperkalemia; E11.22 Type 2 diabetes mellitus with diabetic chronic kidney disease; I25.10 Atherosclerotic heart disease of native coronary artery without angina pectoris; E66.01 Morbid (severe) obesity due to excess calories; E78.5 Hyperlipidemia, unspecified; E03.9 Hypothyroidism, unspecified; N18.31 Chronic kidney disease, stage 3a; K74.60 Unspecified cirrhosis of liver; E53.8 Deficiency of other specified B group vitamins; S00.03XA Contusion of scalp, initial encounter; S00.11XA Contusion of right eyelid and periocular area, initial encounter; W18.30XA Fall on same level, unspecified, initial encounter; N28.89 Other specified disorders of kidney and ureter; Y93.89 Activity, other specified; Y92.89 Other specified places as the place of occurrence of the external cause; Y99.8 Other external cause status; Z79.82 Long term (current) use of aspirin; Z82.49 Family history of ischemic heart disease and other diseases of the circulatory system; Z83.3 Family history of diabetes mellitus; Z90.79 Acquired absence of other genital organ(s); Z68.36 Body mass index [BMI] 36.0-36.9, adult; Z88.5 Allergy status to narcotic agent; Z79.899 Other long term (current) drug therapy
CPT/HCPCS: 36415; 36600; 71046; 71250; 74178; 76604; 76700; 76881; 76942; 80048; 80053; 81001; 82105; 82378; 82607; 82805; 82962; 83036; 83615; 83735; 83880; 84154; 84439; 84443; 85007; 85025; 85027; 85610; 85730; 86301; 86704; 86706; 86708; 86803; 86850; 86900; 86901; 87070; 87081; 87086; 87205; 87340; 88184; 88341; 93306; 93926; 93970; 94640; 94660; 97110; 97116; 97163; 97530; G0378; J0696; J1100; J1815; J2001; J2405; J2543; J2704